=== PATIENT | female | born 1980 | race Caucasian/White ===

== ENCOUNTER 2020-05-23 00:27 | Outpatient (CLI) | payer OTHER, SELFPAY ==
[2020-05-24 00:20] LABS: SARS-CoV-2 RNA PCR Negative
== END 2020-05-23 00:28 | disposition home or self-care (01) ==
LOC: ANHCOVIDDT 00:27
PROVIDERS: PCP Internal Medicine; Visit Provider Otolaryngology
DX: Z01.812 Encounter for preprocedural laboratory examination (principal); Z20.822 Contact with and (suspected) exposure to COVID-19
CPT/HCPCS: C9803; U0003; U0005

== ENCOUNTER 2020-05-26 00:14 | Day surgery (SDC) | payer OTHER, SELFPAY ==
[2020-05-20 12:43] VITALS: BMI 31.9
--- NOTE | 2020-05-21 07:29 | PM.HPGS ---
History of Present Illness History of Present Illness Consent: Risks, benefits, and alternatives have been discussed and questions answered. Patient agrees to proceed with procedure. Chief complaint: hypertrophic tonsils Narrative: Norma Aggarwal is a 39 year old female [facility] Social History Social History (Updated 04/21/20 @ 11:00 by Victoria Eddy [facility]) Smoking packs per day: 0.5 Smoking cigarettes per day: 10.0 Years smoked: 20 Smoking pack-years: 10.00 Smoking status: Current every day smoker Tobacco type: cigarettes Second hand tobacco smoke exposure: Yes Alcohol intake: never Substance use: never Substance use type: does not use Spiritual care concerns: No Meds Home Medications and Allergies Home Medications Medication Instructions Recorded Confirmed Type clonazepam 1 mg tablet 1 mg PO HS PRN 04/21/20 05/20/20 History fluticasone propionate 50 1 spray INTRANASAL DAILY PRN 04/21/20 05/20/20 History mcg/actuation nasal spray,suspension hydrochlorothiazide 25 mg tablet 25 mg PO DAILY 04/21/20 05/20/20 History metformin 500 mg tablet 500 mg PO BID 04/21/20 05/20/20 History pantoprazole 40 mg tablet,delayed 40 mg PO QAM 04/21/20 05/20/20 History release ropinirole 0.5 mg tablet 0.5 mg PO HS 04/21/20 05/20/20 History Allergies Allergy/AdvReac Type Severity Reaction Status Date / Time No Known Allergies Allergy Verified 05/20/20 12:39
--- NOTE | 2020-05-21 07:29 | PM.HPGS ---
History of Present Illness History of Present Illness Consent: Risks, benefits, and alternatives have been discussed and questions answered. Patient agrees to proceed with procedure. Chief complaint: hypertrophic tonsils Narrative: Norma Aggarwal is a 39 year old female she has had multiple episodes of tonsillitis strep throats as mobile as enlarged tonsils with obstructive breathing patterns at night Review of Systems Review of Systems: All systems reviewed & are unremarkable except as noted in HPI and below PMFSH Social History Social History (Updated 04/21/20 @ 11:00 by Victoria Eddy [facility]) Smoking packs per day: 0.5 Smoking cigarettes per day: 10.0 Years smoked: 20 Smoking pack-years: 10.00 Smoking status: Current every day smoker Tobacco type: cigarettes Second hand tobacco smoke exposure: Yes Alcohol intake: never Substance use: never Substance use type: does not use Spiritual care concerns: No Meds Home Medications and Allergies Home Medications Medication Instructions Recorded Confirmed Type clonazepam 1 mg tablet 1 mg PO HS PRN 04/21/20 05/20/20 History fluticasone propionate 50 1 spray INTRANASAL DAILY PRN 04/21/20 05/20/20 History mcg/actuation nasal spray,suspension hydrochlorothiazide 25 mg tablet 25 mg PO DAILY 04/21/20 05/20/20 History metformin 500 mg tablet 500 mg PO BID 04/21/20 05/20/20 History pantoprazole 40 mg tablet,delayed 40 mg PO QAM 04/21/20 05/20/20 History release ropinirole 0.5 mg tablet 0.5 mg PO HS 04/21/20 05/20/20 History Allergies Allergy/AdvReac Type Severity Reaction Status Date / Time No Known Allergies Allergy Verified 05/20/20 12:39 Assessment and Plan Additional Plan plan is a tonsillectomy
--- NOTE | 2020-05-25 08:53 | WPDANESEPPF ---
Anes - Initial Pre Proc Eval Procedure: Operation Date: 05/26/20 12:30 Proposed Procedures p Tonsillectomy - Marlo Lerma MD Date/Time: 05/25/20 08:53 Surgeon: Marlo Lerma MD Pre Op Diagnosis: hypertrophic tonsils Patient Data Age: 39 Gender: F Height: 1.6 m Weight: 81.81 kg Allergies Allergy/AdvReac Type Severity Reaction Status Date / Time No Known Allergies Allergy Verified 05/20/20 12:39 Home Medications Medication Instructions Recorded Confirmed Type clonazepam 1 mg tablet 1 mg PO HS PRN 04/21/20 05/26/20 History fluticasone propionate 50 1 spray INTRANASAL DAILY PRN 04/21/20 05/26/20 History mcg/actuation nasal spray,suspension hydrochlorothiazide 25 mg tablet 25 mg PO DAILY 04/21/20 05/26/20 History metformin 500 mg tablet 500 mg PO BID 04/21/20 05/26/20 History pantoprazole 40 mg tablet,delayed 40 mg PO QAM 04/21/20 05/26/20 History release ropinirole 0.5 mg tablet 0.5 mg PO HS 04/21/20 05/26/20 History Patient hx anesthesia problems: none Family hx anesthesia problems: none PMFSH Past Medical History Medical History (Updated 05/25/20 @ 08:53 by Ranjeet Thomas DO) Diabetes type 2, controlled GERD (gastroesophageal reflux disease) KENNEDI (obstructive sleep apnea) RLS (restless legs syndrome) Surgical History Surgical History (Updated 05/25/20 @ 08:53 by Ranjeet Thomas DO) History of x2 Social History Social History (Updated 04/21/20 @ 11:00 by Victoria Eddy CMA) Smoking packs per day: 0.5 Smoking cigarettes per day: 10.0 Years smoked: 20 Smoking pack-years: 10.00 Smoking status: Current every day smoker Tobacco type: cigarettes Second hand tobacco smoke exposure: Yes Alcohol intake: never Substance use: never Substance use type: does not use Living arrangements: with family Spiritual care concerns: No Anes - Eval Final PreProcedure Day of Procedure 05/25/20 08:53 Patient weight: obese Heart: regular rate and rhythm Lungs: clear to auscultation and normal air movement Airway: Mallampati scale class II Neurological: alert and oriented Last oral intake: >/= 8 hours ASA classification: III Emergent: no Anesthetic plan: proceed Anesthesia type and monitoring: general ETT and standard monitoring Informed Consent: The patient's anesthetic plan and its attendant risks and benefits were discussed with the patient/family/POA. Questions were solicited and answers provided to the satisfaction of the patient/family/POA.
[2020-05-26] VITALS (10 sets, daily range): BP systolic 100–143; BP diastolic 50–97; PULSE 82–116; RESP 12–20; TEMP 36.6–36.8; O2SAT 92–100
--- NOTE | 2020-05-26 06:04 | WPDHPUPDATE1 ---
History and Physical Update Update Date/Time: 05/26/20 06:04 History and Physical has been reviewed, including an updated exam of the patient. There are NO changes in the patient's condition. Risks, benefits, and alternatives have been discussed and questions answered. Patient agrees to proceed with procedure.
[2020-05-26] MEDS: ACETAMINOPHEN 500 MG TABLET 1000 MG PO (10:13)
[2020-05-26] MEDS: LACTATED RINGERS 1,000 ML 30 ML IV CONT ×2 (10:35→11:48)
[2020-05-26 10:42] LABS: Glucose Point of Care 102 (65-105)
--- NOTE | 2020-05-26 11:25 | PM.PROC ---
Procedure Note - Detailed Date of procedure: 05/26/20 Pre-op diagnosis: hypertrophic tonsils Post-op diagnosis: same Procedure performed: Tonsillectomy Description of procedure: Tonsillectomy Anesthesia: GLMA Surgeon: Marlo Lerma MD Estimated blood loss (mL): 15 Drains: No Packing: No Pathology: none sent Complications: No immediate complications Condition: stable Disposition: PACU
[2020-05-26 11:28] LABS: Glucose Point of Care 115 (65-105)
[2020-05-26] MEDS: ONDANSETRON INJ 4 MG/2 ML VIAL IV PUSH (11:36)
[2020-05-26] MEDS: fentaNYL CITRATE INJ (*CRX) 100 MCG/2 ML VIAL 25 MCG IV PUSH ×8 (11:39→12:18)
== END 2020-05-26 13:25 | disposition home or self-care (01) ==
PROVIDERS: PCP Internal Medicine; Visit Provider Otolaryngology
PROC: (CPT 42826; principal; 2020-05-26 12:30)
DX: J35.01 Chronic tonsillitis (principal); E11.9 Type 2 diabetes mellitus without complications; K21.9 Gastro-esophageal reflux disease without esophagitis; G47.33 Obstructive sleep apnea (adult) (pediatric); G25.81 Restless legs syndrome; F17.210 Nicotine dependence, cigarettes, uncomplicated; E66.9 Obesity, unspecified; Z68.32 Body mass index [BMI] 32.0-32.9, adult
CPT/HCPCS: 42826; 88302; 88304; A9270; C9803; J0330; J1100; J2250; J2405; J2704; J3010; J7120; U0003; U0005